=== PATIENT | female | born 1990 | race Caucasian/White ===

== ENCOUNTER 2019-01-05 11:11 | Emergency (ER) | payer OTHER ==
[~2019-01-05] VITALS: Ht 157.5 cm; Wt 76.0 kg
[2019-01-05 11:24] VITALS: BP 128/90
[2019-01-05] MEDS ORDERED: ONDANSETRON ODT 4 MG ONE (11:41)
[2019-01-05] MEDS ORDERED: ONDANSETRON ODT 4 MG PO ONE (12:00)
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
--- NOTE | 2019-01-05 13:23 | NUR ---
Patient given discharge instructions and they have confirmed that they understand the instructions. Patient ambulatory with steady gait. Pt left with all personal belongings.
== END 2019-01-05 13:26 | disposition home or self-care (01) ==
LOC: ED 11:41
DX: S06.0X0A Concussion without loss of consciousness, initial encounter (principal); Y04.8XXA Assault by other bodily force, initial encounter; Y93.89 Activity, other specified; Y92.099 Unspecified place in other non-institutional residence as the place of occurrence of the external cause; Y99.8 Other external cause status
CPT/HCPCS: 70450; 70486; 99284; Q0162

== ENCOUNTER 2020-02-03 19:27 | Emergency (ER) | payer SELFPAY ==
[~2020-02-03] VITALS: Ht 157.5 cm; Wt 71.4 kg
--- NOTE | 2020-02-03 19:53 | NUR ---
VAGINAL BLEEDING X 1 MONTH. 9 TAMPONS PER DAY. NO BC. SEXUALLY ACTIVE. LOWER ABD PAIN. NO FEVERS. SMOKES CIGARETTES. ALCOHOL USE
[2020-02-03 20:15] LABS: HCG UR SG 1.015 (1.003-1.030); MICROSCOPIC AUTO
[2020-02-03 20:23] LABS: CULTURE INDICATED? NO
[2020-02-03 20:30] LABS: BASOPHILS # (AUTO) 0.03 x10^3/uL (0-0.1); BASOPHILS % (AUTO) 0 % (0-1); EOSINOPHILS # (AUTO) 0.01 x10^3/uL (0-0.4); EOSINOPHILS % (AUTO) 0 % (1-7); LYMPHOCYTES # (AUTO) 3.02 x10^3/uL (1-3.4); LYMPHOCYTES % (AUTO) 43 % (22-44); MD NO; MEAN CORPUSCULAR HGB CONC 34.2 g/dL (32.4-35.8); MEAN CORPUSCULAR VOLUME 96.2 fL (80-100); MEAN PLATELET VOLUME 6.6 fL (7.4-10.4); MONOCYTES # (AUTO) 0.52 x10^3/uL (0.2-0.8); MONOCYTES % (AUTO) 7 % (2-9); NEUTROPHILS # (AUTO) 3.44 x10^3/uL (1.8-6.8); NEUTROPHILS % (AUTO) 49 % (42-75); PLATELET COUNT 355 x10^3/uL (130-400); RED BLOOD COUNT 4.05 x10^6/uL (3.82-5.3); RED CELL DISTRIBUTION WIDTH 20.3 % (9.6-15.2)
[2020-02-03 20:33] LABS: ANION GAP 7 mmol/L (5-15); CALCIUM 8.3 mg/dL (8.5-10.1); CHLORIDE 110 mmol/L (98-107); CREATININE 0.73 mg/dL (0.55-1.02)
--- NOTE | 2020-02-03 21:10 | NUR ---
Labs and urine sent. Returned from [facility].
[2020-02-03 21:22] VITALS: BP 110/55
== END 2020-02-03 22:06 | disposition home or self-care (01) ==
LOC: ED 21:45
DX: N93.8 Other specified abnormal uterine and vaginal bleeding (principal); R10.2 Pelvic and perineal pain
CPT/HCPCS: 36415; 76830; 80048; 81001; 81025; 85025; 99284

== ENCOUNTER 2020-10-26 12:00 | Emergency (ER) | payer MEDICAID ==
[~2020-10-26] VITALS: Ht 160 cm; Wt 71.7 kg
--- NOTE | 2020-10-26 13:35 | NUR ---
pt moved from lobby to room 43. assumed care of pt. pt here for R ankle pain and swelling after she slipped and fell on the ice this AM. pt has swelling to R ankle. no obvious deformity. CMS intact. Pollo FORD at bedside for eval
--- NOTE | 2020-10-26 13:40 | NUR ---
pt extremity elevated and ice pack applied for comfort
--- NOTE | 2020-10-26 14:02 | NUR ---
chart up for MD recheck
[2020-10-26 15:24] VITALS: BP 120/89
== END 2020-10-26 15:29 | disposition home or self-care (01) ==
LOC: ED 13:49
DX: S99.911A Unspecified injury of right ankle, initial encounter (principal); G89.11 Acute pain due to trauma; M25.571 Pain in right ankle and joints of right foot; F17.210 Nicotine dependence, cigarettes, uncomplicated; W00.0XXA Fall on same level due to ice and snow, initial encounter; Y93.89 Activity, other specified; Y92.488 Other paved roadways as the place of occurrence of the external cause; Y99.8 Other external cause status
CPT/HCPCS: 99283; 99406